=== PATIENT | female | born 1980 | race Two or more races ===

== ENCOUNTER 2021-12-12 16:22 | Emergency (ER) | payer SELFPAY ==
[~2021-12-12] VITALS: Ht 170.2 cm; Wt 54.4 kg
[2021-12-12 16:39] VITALS: BP 111/70
== END 2021-12-12 16:54 | disposition left against medical advice (07) ==
LOC: ER 16:22 → EDBD 16:22 → ER 16:54
DX: R19.7 Diarrhea, unspecified (principal); M79.605 Pain in left leg; M79.604 Pain in right leg; Z53.21 Procedure and treatment not carried out due to patient leaving prior to being seen by health care provider

== ENCOUNTER 2022-06-28 10:44 | Inpatient (IN) | payer MEDICAID, OTHER ==
[~2022-06-28] VITALS: Ht 170.2 cm; Wt 63.0 kg
[2022-06-28] MEDS ORDERED: SODIUM CHLORIDE 0.9% 1,000 ML IV ONE ×2 (11:15)
[2022-06-28 11:35] LABS: Urine Bacteria FEW /hpf (None Seen); Urine Blood Negative /uL (Negative); Urine Specific Gravity 1.037 (1.001-1.035); Urine WBC <1 /hpf (0 - 5)
[2022-06-28 12:04] LABS: Albumin 3.3 g/dL (3.4-5.0); Calcium 8.7 mg/dL (8.5-10.1)
[2022-06-28 12:13] LABS: Bilirubin, Total 0.3 mg/dL (0.2-1.0); Total Protein 7.5 g/dL (6.4-8.2)
[2022-06-28 12:19] LABS: Basophils # (auto) 0 10 ^3/uL (0-0.2); Basophils % (auto) 0.6 % (0.0-2.0); Eosinophils # (auto) 0 10 ^3/uL (0-0.8); Lymphocytes # (auto) 1.1 10 ^3/uL (0.4-5.4); Nucleated Red Blood Cells % 0.1 %
[2022-06-28 12:22] LABS: Eosinophils % (auto) 0.2 % (0.0-7.0); Hematocrit 35.6 % (36.0-46.0); Hemoglobin 10.3 g/dL (12.2-16.2); Lymphocytes % (auto) 15.2 % (10.0-50.0); Mean Corpuscular Hemoglobin 17.3 pg (28.0-32.0); Mean Corpuscular Volume 59.5 fL (80.0-100.0); Monocytes # (auto) 0.4 10 ^3/uL (0-1.3); Monocytes % (auto) 5.4 % (0.0-12.0); Neutrophils # (auto) 5.7 10 ^3/uL (1.6-8.6); Neutrophils % (auto) 78.6 % (37.0-80.0); Red Blood Cells 5.98 10^6/uL (4.0-5.20); White Blood Cell 7.3 10^3/uL (4.4-10.8)
[2022-06-28 13:02] LABS: BUN/Creatinine Ratio 7.8
[2022-06-28 13:48] LABS: Cholesterol 87 mg/dL (< 200); HDL Cholesterol 21 mg/dL (40-59); LDL Cholesterol 50 mg/dL (< 100); Triglycerides 140 mg/dL (< 150)
[2022-06-28 13:51] LABS: Alcohol, Urine < 3.0 mg/dL (0-10); Amphetamine Screen, Urine NEGATIVE (NEGATIVE); Barbiturate Scree,Urine NEGATIVE (NEGATIVE); Benzodiazephine Screen, Urine NEGATIVE (NEGATIVE); Cannabinoid Screen, Urine NEGATIVE (NEGATIVE); Cocaine Screen, Urine NEGATIVE (NEGATIVE); Phencyclidine Screen, Urine NEGATIVE (NEGATIVE)
[2022-06-28] MEDS ORDERED: NITROGLYCERIN 0.4 MG SL TAB SL PRN (14:00)
[2022-06-28] MEDS ORDERED: PANTOPRAZOLE 40 MG/10 ML VIAL INJ IV ONE (14:15)
[2022-06-28] MEDS ORDERED: DEXTROSE (50%) 50ML SYRG IV PRN (14:15)
[2022-06-28] MEDS ORDERED: InsuLIN REG 1unit/0.01ml Soln (100units/ml) IV ONE ×3 (14:30→17:00)
[2022-06-28 14:59] LABS: Opiate Scree,Urine NEGATIVE (NEGATIVE)
[2022-06-28] MEDS ORDERED: DIPHENOXYLATE W/ATROPINE 2.5 MG TAB PO ONE (17:00)
[2022-06-28] MEDS: InsuLIN REG 1unit/0.01ml Soln (100units/ml) SC SCH ×2 (17:00→23:04)
[2022-06-28] MEDS: MORPHINE SULFATE INJ 2 MG/ml SYRG IV PRN (17:59)
[2022-06-28] MEDS: ACCU-CHEK COMFORT CURVE STRIP VI SCH ×2 (19:44→22:00)
[2022-06-28] MEDS ORDERED: MICONAZOLE NITRATE 2 % VAGINAL CREAM 45 GM PV ONE (20:30)
[2022-06-28] MEDS: SODIUM CHLORIDE 0.9% 1,000 ML IV SCH (21:04)
[2022-06-28] MEDS ORDERED: KETOROLAC TROMETH 30 MG/ML 1ML VIAL IV ONE (21:30)
[2022-06-28] MEDS ORDERED: MICONAZOLE NITRATE 2 % VAGINAL CREAM 45 GM PV SCH (22:00)
[2022-06-28] MEDS: KETOCONAZOLE 2 % TOPICAL CREAM 15GM TOP SCH ×2 (22:00→23:06)
[2022-06-28] MEDS: INSULIN LANTUS (GLARGINE) 1 /0.01ml (100units/ml) SC SCH (23:05)
[2022-06-29] MEDS: SODIUM CHLORIDE 0.9% 1,000 ML IV SCH ×3 (00:15→17:54)
[2022-06-29] MEDS: KETOROLAC TROMETH 30 MG/ML 1ML VIAL IV PRN ×3 (03:55→22:19)
[2022-06-29 06:26] LABS: Basophils # (auto) 0.1 10 ^3/uL (0-0.2); Eosinophils # (auto) 0.1 10 ^3/uL (0-0.8); Mean Corpuscular Volume 59.7 fL (80.0-100.0); Neutrophils # (auto) 4.1 10 ^3/uL (1.6-8.6)
[2022-06-29 06:28] LABS: Basophils % (auto) 0.9 % (0.0-2.0); Eosinophils % (auto) 2.2 % (0.0-7.0); Hematocrit 27.9 % (36.0-46.0); Hemoglobin 7.9 g/dL (12.2-16.2); Lymphocytes # (auto) 1.6 10 ^3/uL (0.4-5.4); Mean Corpuscular Hemoglobin 16.9 pg (28.0-32.0); Mean Corpuscular Hgb Conc. 28.3 g/dL (32.0-36.0); Monocytes # (auto) 0.4 10 ^3/uL (0-1.3); Monocytes % (auto) 5.6 % (0.0-12.0); Neutrophils % (auto) 65.3 % (37.0-80.0); Nucleated Red Blood Cells % 0.1 %; Red Blood Cells 4.68 10^6/uL (4.0-5.20); White Blood Cell 6.3 10^3/uL (4.4-10.8)
[2022-06-29 06:32] LABS: Calcium 8.4 mg/dL (8.5-10.1); Potassium 4.4 mmol/L (3.5-5.1)
[2022-06-29 06:34] LABS: Albumin 2.4 g/dL (3.4-5.0); BUN/Creatinine Ratio 18.5
[2022-06-29 06:39] LABS: Bilirubin, Total 0.2 mg/dL (0.2-1.0); Total Protein 6.1 g/dL (6.4-8.2)
[2022-06-29] MEDS: InsuLIN REG 1unit/0.01ml Soln (100units/ml) SC SCH ×4 (06:55→21:19)
[2022-06-29] MEDS: ACCU-CHEK COMFORT CURVE STRIP VI SCH ×4 (07:07→21:10)
[2022-06-29] MEDS: ONDANSETRON HCL 4 MG/2 ML VIAL IV PRN ×2 (08:24→12:25)
[2022-06-29] MEDS: KETOCONAZOLE 2 % TOPICAL CREAM 15GM TOP SCH ×2 (10:00→21:27)
[2022-06-29] MEDS ORDERED: SODIUM CHLORIDE 0.9% 1,000 ML IV ONE (12:00)
[2022-06-29] MEDS: NICOTINE 7MG/24HR TOPICAL PATCH TD SCH (12:25)
[2022-06-29] MEDS: MORPHINE SULFATE INJ 2 MG/ml SYRG IV PRN ×2 (12:25→17:45)
[2022-06-29] MEDS: PANTOPRAZOLE 40 MG/10 ML VIAL INJ IV SCH (12:27)
[2022-06-29 16:32] VITALS: BP 103/68
[2022-06-29] MEDS ORDERED: ASPI-543 PO (18:54)
[2022-06-29] MEDS ORDERED: INSR100KIT IV (18:54)
[2022-06-29] MEDS: INSULIN LANTUS (GLARGINE) 1 /0.01ml (100units/ml) SC SCH (21:19)
[2022-06-29 22:00] VITALS: BP 93/53
[2022-06-30] VITALS (7 sets, daily range): BP systolic 92–113; BP diastolic 60–75
[2022-06-30] MEDS: SODIUM CHLORIDE 0.9% 1,000 ML IV SCH ×4 (00:10→18:08)
[2022-06-30] MEDS: KETOROLAC TROMETH 30 MG/ML 1ML VIAL IV PRN ×3 (04:44→22:04)
[2022-06-30] MEDS: ACCU-CHEK COMFORT CURVE STRIP VI SCH ×5 (05:57→23:36)
[2022-06-30] MEDS: InsuLIN REG 1unit/0.01ml Soln (100units/ml) SC SCH ×5 (06:06→23:38)
[2022-06-30] MEDS ORDERED: DEXTROSE (50%) 50ML SYRG IV PRN (09:30)
[2022-06-30] MEDS: PANTOPRAZOLE 40 MG/10 ML VIAL INJ IV SCH (09:55)
[2022-06-30] MEDS: KETOCONAZOLE 2 % TOPICAL CREAM 15GM TOP SCH ×2 (09:56→22:03)
[2022-06-30] MEDS: NICOTINE 7MG/24HR TOPICAL PATCH TD SCH (09:56)
[2022-06-30] MEDS: MORPHINE SULFATE INJ 2 MG/ml SYRG IV PRN ×2 (09:59→18:14)
[2022-06-30] MEDS ORDERED: OMNIPAQUE ORAL SOLN 500ml 12mg/ml PO ONE (10:00)
[2022-06-30 13:12] LABS: Basophils # (auto) 0 10 ^3/uL (0-0.2); Eosinophils # (auto) 0.1 10 ^3/uL (0-0.8); Eosinophils % (auto) 1.8 % (0.0-7.0); Hemoglobin 8.6 g/dL (12.2-16.2); Monocytes # (auto) 0.2 10 ^3/uL (0-1.3); Neutrophils # (auto) 3.8 10 ^3/uL (1.6-8.6); White Blood Cell 5.4 10^3/uL (4.4-10.8)
[2022-06-30 13:15] LABS: Basophils % (auto) 0.7 % (0.0-2.0); Lymphocytes # (auto) 1.1 10 ^3/uL (0.4-5.4); Lymphocytes % (auto) 21.3 % (10.0-50.0); Mean Corpuscular Hemoglobin 17.1 pg (28.0-32.0); Mean Corpuscular Hgb Conc. 28.6 g/dL (32.0-36.0); Mean Corpuscular Volume 59.6 fL (80.0-100.0); Monocytes % (auto) 4.4 % (0.0-12.0); Neutrophils % (auto) 71.8 % (37.0-80.0); Nucleated Red Blood Cells % 0.1 %; Red Blood Cells 5.03 10^6/uL (4.0-5.20)
[2022-06-30 13:19] LABS: Red Cell Distribution Width 20.8 % (11.8-14.3)
[2022-06-30] MEDS ORDERED: IOHEXOL 300 MG/ML 100ML BOTTLE IJ ONE (13:43)
[2022-06-30] MEDS ORDERED: NOREPINEPHRINE 8 MG/250ML KIT 250 ML IV SCH (16:15)
[2022-06-30] MEDS: INSULIN LANTUS (GLARGINE) 1 /0.01ml (100units/ml) SC SCH (22:04)
[2022-06-30] MEDS: LOPERAMIDE HCL 2 MG CAP/TAB PO PRN (23:26)
[2022-07-01 00:17] VITALS: BP 97/62
[2022-07-01] MEDS: SODIUM CHLORIDE 0.9% 1,000 ML IV SCH ×4 (04:00→20:40)
[2022-07-01] MEDS: InsuLIN REG 1unit/0.01ml Soln (100units/ml) SC SCH ×5 (04:00→21:16)
[2022-07-01] MEDS: ACCU-CHEK COMFORT CURVE STRIP VI SCH ×5 (04:03→21:16)
[2022-07-01 05:00] VITALS: BP 93/64
[2022-07-01 09:00] VITALS: BP 94/64
[2022-07-01] MEDS: MORPHINE SULFATE INJ 2 MG/ml SYRG IV PRN ×3 (09:08→21:29)
[2022-07-01] MEDS: PANTOPRAZOLE 40 MG/10 ML VIAL INJ IV SCH (09:14)
[2022-07-01] MEDS: NICOTINE 7MG/24HR TOPICAL PATCH TD SCH (09:14)
[2022-07-01] MEDS: KETOCONAZOLE 2 % TOPICAL CREAM 15GM TOP SCH ×2 (09:14→21:32)
[2022-07-01] MEDS ORDERED: levoFLOXacin 500MG 100 ML IV ONE (10:30)
[2022-07-01] MEDS: KETOROLAC TROMETH 30 MG/ML 1ML VIAL IV PRN ×2 (11:53→18:02)
[2022-07-01 13:00] VITALS: BP 94/49
[2022-07-01 17:00] VITALS: BP 101/66
[2022-07-01] MEDS: INSULIN LANTUS (GLARGINE) 1 /0.01ml (100units/ml) SC SCH (21:17)
[2022-07-01 22:00] VITALS: BP 115/65
[2022-07-02] MEDS: ACCU-CHEK COMFORT CURVE STRIP VI SCH ×6 (00:12→20:00)
[2022-07-02] MEDS: InsuLIN REG 1unit/0.01ml Soln (100units/ml) SC SCH ×6 (00:13→20:58)
[2022-07-02] MEDS: KETOROLAC TROMETH 30 MG/ML 1ML VIAL IV PRN ×3 (00:19→17:59)
[2022-07-02] MEDS: MORPHINE SULFATE INJ 2 MG/ml SYRG IV PRN ×3 (02:43→20:02)
[2022-07-02] MEDS: SODIUM CHLORIDE 0.9% 1,000 ML IV SCH ×3 (04:58→22:33)
[2022-07-02 05:00] VITALS: BP 104/66
[2022-07-02] MEDS: NICOTINE 7MG/24HR TOPICAL PATCH TD SCH (08:20)
[2022-07-02] MEDS: PANTOPRAZOLE 40 MG/10 ML VIAL INJ IV SCH (08:20)
[2022-07-02] MEDS: KETOCONAZOLE 2 % TOPICAL CREAM 15GM TOP SCH ×2 (08:21→22:33)
[2022-07-02 09:56] VITALS: BP 113/74
[2022-07-02] MEDS ORDERED: levoFLOXacin 500MG 100 ML IV SCH (10:00)
[2022-07-02] MEDS ORDERED: Ensure HIGH Protein Chocolate 8oz Bottle PO SCH (12:00)
[2022-07-02] MEDS: LOPERAMIDE HCL 2 MG CAP/TAB PO PRN ×2 (12:37→16:18)
[2022-07-02] MEDS: ENSURE CLEAR Mixed Berry 8oz Carton PO SCH ×2 (12:39→17:54)
[2022-07-02 13:00] VITALS: BP 111/82
[2022-07-02 17:00] VITALS: BP 115/78
[2022-07-02 22:00] VITALS: BP 118/76
[2022-07-02] MEDS: INSULIN LANTUS (GLARGINE) 1 /0.01ml (100units/ml) SC SCH (22:33)
[2022-07-03] MEDS: MORPHINE SULFATE INJ 2 MG/ml SYRG IV PRN ×3 (00:32→11:16)
[2022-07-03] MEDS: InsuLIN REG 1unit/0.01ml Soln (100units/ml) SC SCH ×3 (00:41→08:00)
[2022-07-03] MEDS: LOPERAMIDE HCL 2 MG CAP/TAB PO PRN ×3 (00:48→07:40)
[2022-07-03] MEDS: SODIUM CHLORIDE 0.9% 1,000 ML IV SCH ×2 (02:30→09:59)
[2022-07-03] MEDS: ACCU-CHEK COMFORT CURVE STRIP VI SCH ×3 (03:38→08:00)
[2022-07-03] MEDS: KETOROLAC TROMETH 30 MG/ML 1ML VIAL IV PRN (03:46)
[2022-07-03 05:00] VITALS: BP 104/59
[2022-07-03 08:00] VITALS: BP 104/65
[2022-07-03] MEDS: ENSURE CLEAR Mixed Berry 8oz Carton PO SCH (08:00)
[2022-07-03] MEDS: NICOTINE 7MG/24HR TOPICAL PATCH TD SCH (09:59)
[2022-07-03] MEDS: KETOCONAZOLE 2 % TOPICAL CREAM 15GM TOP SCH ×2 (10:00→11:04)
[2022-07-03] MEDS ORDERED: NIC21P TOP (10:26)
[2022-07-03] MEDS ORDERED: INSLANTI SC (10:26)
[2022-07-03] MEDS ORDERED: LEVO500T31 PO (10:26)
[2022-07-03] MEDS ORDERED: LOP2C PO (10:26)
[2022-07-03 11:16] VITALS: BP 130/70
== END 2022-07-03 11:30 | disposition home or self-care (01) | DRG 420 ==
LOC: ER 10:44 → OVERFLOW 14:13 → CENTRAL 06-29 16:04
PROVIDERS: ADMIT Registered Nurse; ATTEND Family Medicine
DX: E11.10 Type 2 diabetes mellitus with ketoacidosis without coma (principal); B95.61 Methicillin susceptible Staphylococcus aureus infection as the cause of diseases classified elsewhere; I50.9 Heart failure, unspecified; E86.0 Dehydration; F17.210 Nicotine dependence, cigarettes, uncomplicated; K52.9 Noninfective gastroenteritis and colitis, unspecified; Z20.822 Contact with and (suspected) exposure to COVID-19; R55 Syncope and collapse; N39.0 Urinary tract infection, site not specified; Z98.891 History of uterine scar from previous surgery
CPT/HCPCS: 36415; 36600; 70450; 71045; 74176; 74177; 80053; 80061; 80307; 81001; 81025; 82010; 82270; 82805; 82962; 83036; 83735; 83880; 84443; 84484; 84702; 85025; 86850; 86900; 86901; 87045; 87086; 87088; 87177; 87186; 87426; 87427; 87493; 93005; 93306; 93886; 99291; C9113; G0378; J1815; J1885; J1956; J2405